=== PATIENT | male | born 1945 | race Caucasian/White ===

== ENCOUNTER 2018-07-07 18:27 | Emergency (ER) | payer MEDICARE, MEDICAID ==
[2018-07-07] MEDS ORDERED: hydrOXYzine 25 MG TAB ONE (19:46)
[2018-07-07] MEDS ORDERED: predniSONE 20 MG TAB ONE (19:46)
== END 2018-07-07 19:52 | disposition home or self-care (01) ==
LOC: BURERS 18:27
DX: S10.96XA Insect bite of unspecified part of neck, initial encounter (principal); S00.86XA Insect bite (nonvenomous) of other part of head, initial encounter; I10 Essential (primary) hypertension; F17.220 Nicotine dependence, chewing tobacco, uncomplicated; W57.XXXA Bitten or stung by nonvenomous insect and other nonvenomous arthropods, initial encounter
CPT/HCPCS: 99282; J7506

== ENCOUNTER 2019-01-27 18:04 | Emergency (ER) | payer MEDICARE, OTHER ==
[2019-01-27] MEDS ORDERED: Ibuprofen 800 MG TAB ONE (18:47)
--- NOTE | 2019-01-27 22:58 | RAD ---
CERVICAL SPINE TWO VIEWS: 01/27/19 AP and lateral views are provided. There is disc space narrowing at C3-C4, C4-C5, and C5-C6. There ma y be slight disc space narrowing at C6-C7. Osteophytes are most prominent anteriorly at C4-C5 and the re are some posterior osteophytes at the C4-C5 and C5-C6. Arthritic changes are present in the facet joints. There is mild loss of the normal cervical lordosis. No fracture or soft tissue swelling was s een. The C1 to dens distance is normal. IMPRESSION: Moderately prominent degenerative changes as noted. MRI could be useful in determining if there is an y neural impingement. POS: HOME
== END 2019-01-27 19:11 | disposition home or self-care (01) ==
LOC: BURERS 18:04
DX: M47.812 Spondylosis without myelopathy or radiculopathy, cervical region (principal); I10 Essential (primary) hypertension; F17.220 Nicotine dependence, chewing tobacco, uncomplicated
CPT/HCPCS: 72040